=== PATIENT | female | born 1945 | race Caucasian/White ===

== ENCOUNTER 2016-09-09 21:46 | Emergency (ER) | payer MEDICARE, OTHER ==
--- NOTE | 2016-09-09 22:00 | EDM.PDOC ---
ED HPI GENERAL MEDICAL PROBLEM - General Chief Complaint: Skin Complaint Stated Complaint: BITE NECK/RASH Time Seen by Provider: 09/09/16 21:56 - History of Present Illness INITIAL COMMENTS - FREE TEXT/NARRATIVE: HISTORY AND PHYSICAL: History of present illness: Patient 70-year-old female presents with concern of insect bite to her right neck yesterday she states today she noticed increased redness and discomfort is no fever chills nausea vomiting or other complaints Review of systems: As per history of present illness and below otherwise all systems reviewed and negative. Past medical history: As per history of present illness and as reviewed below otherwise noncontributory. Surgical history: As per history of present illness and as reviewed below otherwise noncontributory. Social history: No reported history of drug or alcohol abuse. Family history: As per history of present illness and as reviewed below otherwise noncontributory. Physical exam: HEENT: Atraumatic, normocephalic, pupils reactive, negative for conjunctival pallor or scleral icterus, mucous membranes moist, throat clear, neck has a small area of erythema minimal swelling., nontender, trachea midline. Lungs: Clear to auscultation, breath sounds equal bilaterally, chest nontender. Heart: S1S2, regular, negative for clicks, rubs, or JVD. Abdomen: Soft, nondistended, nontender. Negative for masses or hepatosplenomegaly. Negative for costovertebral tenderness. Pelvis: Stable nontender. Genitourinary: Deferred. Rectal: Deferred. Extremities: Atraumatic, negative for cords or calf pain. Neurovascular unremarkable. Neuro: Awake, alert, oriented. Cranial nerves II through XII unremarkable. Cerebellum unremarkable. Motor and sensory unremarkable throughout. Exam nonfocal. Diagnostics: None Therapeutics: None Impression: #1 insect bite right neck #2 rule out early superficial cellulitis Definitive disposition and diagnosis as appropriate pending reevaluation and review of above. neck area Pain Score (Numeric/FACES): 5 ED ROS GENERAL - Review of Systems Review Of Systems: ROS reveals no pertinent complaints other than HPI. ED EXAM, SKIN/RASH Exam: See Below (See dictation) Course - Vital Signs Last Recorded V/S: Last Vital Signs Temp 36.3 C 09/09/16 21:53 Pulse 50 L 09/09/16 21:53 Resp 18 09/09/16 21:53 BP 141/65 H 09/09/16 21:53 Pulse Ox Departure - Departure Time of Disposition: 21:59 Disposition: Home, Self-Care 01 Preliminary Cause of *Q: Sepsis & Multi System Organ Failure Clinical Impression: Cellulitis - Discharge Information Forms: ED Department Discharge Additional Instructions: The following information is given to patients seen in the emergency department who are being discharged to home. This information is to outline your options for follow-up care. We provide all patients seen in our emergency department with a follow-up referral. The need for follow-up, as well as the timing and circumstances, are variable depending upon the specifics of your emergency department visit. If you don't have a primary care physician on staff, we will provide you with a referral. We always advise you to contact your personal physician following an emergency department visit to inform them of the circumstance of the visit and for follow-up with them and/or the need for any referrals to a consulting specialist. The emergency department will also refer you to a specialist when appropriate. This referral assures that you have the opportunity for followup care with a specialist. All of these measure are taken in an effort to provide you with optimal care, which includes your followup. Under all circumstances we always encourage you to contact your private physician who remains a resource for coordinating your care. When calling for followup care, please make the office aware that this follow-up is from your recent emergency room visit. If for any reason you are refused follow-up, please contact the [facility] emergency department at and asked to speak to the emergency department charge nurse. Bactrim as prescribed Motrin and Tylenol as directed Benadryl as directed follow up primary medical doctor 1-2 days return as needed as discussed
== END 2016-09-09 22:06 | disposition home or self-care (01) ==
LOC: MW.ED 21:46
CPT/HCPCS: 99281; 99283

== ENCOUNTER 2017-06-24 09:22 | Observation (INO) | payer MEDICARE, OTHER ==
[2017-06-24] MEDS ORDERED: Meclizine 25 MG Tab PO ONE (09:55)
[2017-06-24] MEDS ORDERED: Ondansetron 4 MG/2 ML SDV IVPUSH ONE (09:55)
[2017-06-24] MEDS ORDERED: Sodium Chloride 0.9% 2.5 ML Syringe FLUSH PRN (09:55)
[2017-06-24] MEDS ORDERED: Sodium Chloride 0.9% 10 ML Syringe FLUSH PRN (09:55)
[2017-06-24] MEDS ORDERED: diphenhydrAMINE 50 MG/ML SDV IVPUSH ONE (09:55)
--- NOTE | 2017-06-24 09:56 | EDM.PDOC ---
ED HPI GENERAL MEDICAL PROBLEM - General Chief Complaint: Neuro Symptoms/Deficits Stated Complaint: DIZZY Time Seen by Provider: 06/24/17 09:34 - History of Present Illness INITIAL COMMENTS - FREE TEXT/NARRATIVE: HISTORY AND PHYSICAL: History of present illness: The patient is a 71-year-old female who follows with Dr. Florence at [facility] for her medical care and presents with sudden onset of dizziness associated with nausea that started about 8:30- 9:00 this morning. The patient tells me she had a normal day yesterday without any systemic complaints and slept fine through the night. She says she usually awakens one time during the night due to a hot flash and to go to the bathroom and she did that about 2 AM and had no symptoms of dizziness or lightheadedness. She woke at 5:00 this morning got up and did her normal morning routine and was having no symptomatology. She decided she was laid back down for a nap and as she was laying in bed the dizziness suddenly started and she felt like it was a spinning -like sensation. She was afraid to sit up or move her head. It was associated with nausea but no vomiting. The patient denies any headache or ear pain no chest pain palpitations or shortness of breath no abdominal pain. She currently tells me is better when she is laying flat and better with her eyes closed with little head movement. Is no neurosensory changes in her extremities and no weakness. The patient says that they called EMS for the symptoms as she was afraid to sit up. She does not feel lightheaded she feels like she is dizzy. She has never had this before but had one episode of motion sickness when she was on a boat in [place] on a trip and is never been on a boat since. EMS gave her Zofran 4 mg prior to arrival and she says that the nausea is improved but not gone. She has never had any in her ear disturbances that she is aware of. She has had cataract surgery in the past and that is stable. Review of systems: As per history of present illness and below otherwise all systems reviewed and negative. Past medical history: As per history of present illness and as reviewed below otherwise noncontributory. Surgical history: As per history of present illness and as reviewed below otherwise noncontributory. Social history: No reported history of drug or alcohol abuse. Family history: As per history of present illness and as reviewed below otherwise noncontributory. Physical exam: General: Well-developed well-nourished female who is nontoxic and speaking clearly and is very thin but age appropriate. Vitals are noted by me. The patient prefers to lie flat and does not like to move her head very much. HEENT: Atraumatic, normocephalic, pupils reactive, the patient does have some nystagmus with gaze to the left denies any symptomatology with that movement, negative for conjunctival pallor or scleral icterus, mucous membranes moist, throat clear, neck supple, nontender, trachea midline. TMs are dulled bilaterally and there is no mastoid tenderness or redness. There is no cervical adenopathy or nuchal rigidity and no posterior neck tenderness or occipital tenderness. Lungs: Clear to auscultation, breath sounds equal bilaterally, chest nontender. Heart: S1S2, regular, negative for clicks, rubs, or JVD. Abdomen: Soft, nondistended, nontender. Negative for masses or hepatosplenomegaly. NABS Pelvis: Stable nontender. Genitourinary: Deferred. Rectal: Deferred. Extremities: Atraumatic, negative for cords or calf pain. Neurovascular unremarkable. Full range of motion without defects or deficits Neuro: Awake, alert, oriented. Cranial nerves II through XII unremarkable. Motor and sensory unremarkable throughout. Exam nonfocal. Skin: There is no diaphoresis turgor is normal and no overt rashes or lesions are appreciated Diagnostics: EKG CBC CMP troponin TSH UA urine culture if indicated orthostatic vital CT scan of the head Therapeutics: IV O2 monitor IV fluids Zofran Antivert Benadryl Orthostatic vitals show change in SBP and pulse with HR going from 54 to 70 and SBP 145-124 from supine to standing. Nursing tells me that the patient does have symptomatology of dizziness/lightheadedness with these changes. 1156: Case was discussed with Dr. Garland our hospitalist who accepts the patient for observation admission. I've also discussed all testing results with the patient and at bedside. She says she feels somewhat better but is not completely resolved and she is concerned about difficulties with movement. She is aware of my concerns and agrees with the admission. Impression: Acute episode of dizziness, persistent orthostasis etiology unclear stable Definitive disposition and diagnosis as appropriate pending reevaluation and review of above. 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: Musculoskeletal History: Reports: None Neurological History: Reports: None Psychiatric History: Reports: None Endocrine/Metabolic History: Reports: None Hematologic History: Reports: None Immunologic History: Reports: None Oncologic (Cancer) History: Reports: None Dermatologic History: Reports: None - Infectious Disease History Infectious Disease History: Reports: Chicken Pox - Past Surgical History Head Surgeries/Procedures: Reports: None HEENT Surgical History: Reports: Cataract Surgery GI Surgical History: Reports: Other (See Below) Other GI Surgeries/Procedures: Tummy Tuck Female Surgical History: Reports: Hysterectomy Social & Family History - Family History Family Medical History: Noncontributory - Tobacco Use Smoking Status *Q: Unknown Ever Smoked - Caffeine Use Caffeine Use: Reports: Coffee - Recreational Drug Use Recreational Drug Use: No ED ROS GENERAL - Review of Systems Review Of Systems: ROS reveals no pertinent complaints other than HPI. ED EXAM, GENERAL - Physical Exam Exam: See Below (see dictation) Course - Vital Signs Last Recorded V/S: Last Vital Signs Temp 35.9 C 06/24/17 09:37 Pulse 53 L 06/24/17 11:31 Resp 22 H 06/24/17 11:31 BP 152/77 H 06/24/17 11:31 Pulse Ox 100 06/24/17 11:31 Orthostatic Blood Pressure [ 124/84 Standing] Orthostatic Blood Pressure [ 145/76 Sitting] Orthostatic Blood Pressure [ 145/71 Supine] - Orders/Labs/Meds Orders: Active Orders 24 hr Category Date Time Status Cardiac Monitoring [RC] . DIRECTED Care 06/24/17 09:54 Active EKG Documentation Completion [RC] STAT Care 06/24/17 09:54 Active Orthostatic Vital Signs [RC] ASDIRECTED Care 06/24/17 09:55 Active Oxygen Therapy, ED [RC] ASDIRECTED Care 06/24/17 09:54 Active Pulse Oximetry [RC] ASDIRECTED Care 06/24/17 09:54 Active UA W/MICROSCOPIC [URIN] Stat Lab 06/24/17 11:25 Ordered Sodium Chloride 0.9% [Normal Saline] 500 ml Med 06/24/17 10:00 Active IV STAT Sodium Chloride 0.9% [Saline Flush] Med 06/24/17 09:55 Active 10 ml FLUSH ASDIRECTED PRN Sodium Chloride 0.9% [Saline Flush] Med 06/24/17 09:55 Active 2.5 ml FLUSH ASDIRECTED PRN Saline Lock Insert [OM.PC] Stat Oth 06/24/17 09:54 Ordered Medication Orders Sodium Chloride (Normal Saline) 500 mls @ 999 mls/hr IV STAT ENEDINA Last Admin: 06/24/17 10:48 Dose: 999 mls/hr Sodium Chloride (Saline Flush) 10 ml FLUSH ASDIRECTED PRN PRN Reason: Keep Vein Open Sodium Chloride (Saline Flush) 2.5 ml FLUSH ASDIRECTED PRN PRN Reason: Keep Vein Open Labs: Laboratory Tests 06/24/17 06/24/17 06/24/17 Range/Units 10:30 10:30 11:25 WBC 4.91 (4.0-11.0) K/uL RBC 4.46 (4.30-5.90) M/uL Hgb 13.9 (12.0-16.0) g/dL Hct 41.6 (36.0-46.0) % MCV 93.3 (80.0-98.0) fL MCH 31.2 (27.0-32.0) pg MCHC 33.4 (31.0-37.0) g/dL RDW Std Deviation 44.3 (28.0-62.0) fl RDW Coeff of Shaquille 13 (11.0-15.0) % Plt Count 207 (150-400) K/uL MPV 9.40 (7.40-12.00) fL Neut % (Auto) 74.6 (48.0-80.0) % Lymph % (Auto) 18.5 (16.0-40.0) % [place] % (Auto) 5.5 (0.0-15.0) % Eos % (Auto) 1.0 (0.0-7.0) % Baso % (Auto) 0.4 (0.0-1.5) % Neut # (Auto) 3.7 (1.4-5.7) K/uL Lymph # (Auto) 0.9 (0.6-2.4) K/uL [place] # (Auto) 0.3 (0.0-0.8) K/uL Eos # (Auto) 0.1 (0.0-0.7) K/uL Baso # (Auto) 0.0 (0.0-0.1) K/uL Nucleated RBC % 0.0 /100WBC Nucleated RBCs # 0 K/uL Sodium 141 (136-145) mmol/L Potassium 4.3 (3.5-5.1) mmol/L Chloride 109 H (98-107) mmol/L Carbon Dioxide 27.6 (21.0-32.0) mmol/L BUN 8 (7.0-18.0) mg/dL Creatinine 0.7 (0.6-1.0) mg/dL Est Cr Clr Drug Dosing TNP Estimated GFR (MDRD) > 60.0 ml/min Glucose 106 (74-106) mg/dL Calcium 8.9 (8.5-10.1) mg/dL Total Bilirubin 0.5 (0.2-1.0) mg/dL AST 17 (15-37) IU/L ALT 15 (14-63) IU/L Alkaline Phosphatase 47 (46-116) U/L Troponin I < 0.050 (0.000-0.056) ng/mL Total Protein 6.5 (6.4-8.2) g/dL Albumin 3.3 L (3.4-5.0) g/dL Globulin 3.2 (2.0-3.5) g/dL Albumin/Globulin Ratio 1.0 L (1.3-2.8) TSH 3rd Generation 1.10 (0.36-3.74) uIU/mL Urine Color YELLOW Urine Appearance SLT CLOUDY Urine pH 8.5 H (5.0-8.0) Ur Specific [place] 1.015 (1.001-1.035) Urine Protein NEGATIVE (NEGATIVE) mg/dL Urine Glucose (UA) NEGATIVE (NEGATIVE) mg/dL Urine Ketones TRACE H (NEGATIVE) mg/dL Urine Occult Blood NEGATIVE (NEGATIVE) Urine Nitrite NEGATIVE (NEGATIVE) Urine Bilirubin NEGATIVE (NEGATIVE) Urine Urobilinogen 0.2 (<2.0) EU/dL Ur Leukocyte Esterase NEGATIVE (NEGATIVE) Urine RBC 0-1 (0-2/HPF) Urine WBC 0-1 (0-5/HPF) Ur Epithelial Cells RARE (NONE-FEW) Amorphous Sediment MODERATE (NEGATIVE) Urine Bacteria RARE (NEGATIVE) Meds: Medications Generic Name Dose Route Start Last Admin Trade Name Freq PRN Reason Stop Dose Admin Sodium Chloride 500 mls @ 999 mls/hr 06/24/17 10:00 06/24/17 10:48 Normal Saline IV 999 mls/hr STAT ENEDINA Administration Sodium Chloride 10 ml 06/24/17 09:55 Saline Flush FLUSH ASDIRECTED PRN Keep Vein Open Sodium Chloride 2.5 ml 06/24/17 09:55 Saline Flush FLUSH ASDIRECTED PRN Keep Vein Open Discontinued Medications Generic Name Dose Route Start Last Admin Trade Name Freq PRN Reason Stop Dose Admin Diphenhydramine HCl 25 mg 06/24/17 09:55 06/24/17 10:51 Benadryl IVPUSH 06/24/17 09:56 25 mg ONETIME ONE Administration Meclizine HCl 25 mg 06/24/17 09:55 06/24/17 10:45 Antivert PO 06/24/17 09:56 25 mg ONETIME ONE Administration Ondansetron HCl 4 mg 06/24/17 09:55 06/24/17 10:46 Zofran IVPUSH 06/24/17 09:56 4 mg ONETIME ONE Administration Departure - Departure Time of Disposition: 11:59 Disposition: Refer to Observation Condition: Good Clinical Impression: Orthostasis, Dizziness - Discharge Information Referrals: Cam Florence MD [Primary Care Provider] - Forms: ED Department Discharge - My Orders Last 24 Hours: My Active Orders 06/24/17 09:54 Cardiac Monitoring [RC] . DIRECTED EKG Documentation Completion [RC] STAT Oxygen Therapy, ED [RC] ASDIRECTED Pulse Oximetry [RC] ASDIRECTED Saline Lock Insert [OM.PC] Stat 06/24/17 09:55 Orthostatic Vital Signs [RC] ASDIRECTED Sodium Chloride 0.9% [Saline Flush] 10 ml FLUSH ASDIRECTED PRN Sodium Chloride 0.9% [Saline Flush] 2.5 ml FLUSH ASDIRECTED PRN 06/24/17 10:00 Sodium Chloride 0.9% [Normal Saline] 500 ml IV STAT 06/24/17 11:25 UA W/MICROSCOPIC [URIN] Stat - Assessment/Plan Last 24 Hours: My Active Orders 06/24/17 09:54 Cardiac Monitoring [RC] . DIRECTED EKG Documentation Completion [RC] STAT Oxygen Therapy, ED [RC] ASDIRECTED Pulse Oximetry [RC] ASDIRECTED Saline Lock Insert [OM.PC] Stat 06/24/17 09:55 Orthostatic Vital Signs [RC] ASDIRECTED Sodium Chloride 0.9% [Saline Flush] 10 ml FLUSH ASDIRECTED PRN Sodium Chloride 0.9% [Saline Flush] 2.5 ml FLUSH ASDIRECTED PRN 06/24/17 10:00 Sodium Chloride 0.9% [Normal Saline] 500 ml IV STAT 06/24/17 11:25 UA W/MICROSCOPIC [URIN] Stat
[2017-06-24] MEDS ORDERED: Sodium Chloride 0.9% 500 ML IV SCH (10:00)
[2017-06-24 11:16] LABS: CHLORIDE,CL 109 mmol/L (98-107); SODIUM,NA 141 mmol/L (136-145)
--- NOTE | 2017-06-24 11:33 | CT ---
EXAMINATION: Non contrast CT head. Coronal and sagittal reformats. HISTORY: Pain FINDINGS: No evidence of intra or extra axial hemorrhage, mass, midline shift, hydrocephalus or edema. No hypoattenuation changes in the major vascular territories to suggest acute infarct. No abnormal intracranial calcifications are detected. No evidence of substantial vascular calcificat ions. Paranasal sinuses and mastoid air cells are well aerated without substantial findings. Orbits and gl obes are symmetric. Pituitary fossa appears unremarkable. Calvarium is intact. No evidence of skull fracture. IMPRESSION: No acute intracranial findings.
--- NOTE | 2017-06-24 13:05 | PCM.HP ---
H&P History of Present Illness - General Date of Service: 06/24/17 Admit Problem/Dx: Admission Diagnosis/Problem Admission Diagnosis/Problem Dizziness Source of Information: Patient History Limitations: Reports: No Limitations - History of Present Illness Initial Comments - Free Text/Narative: This 71 year old female with pmh of anxiety and glaucoma presented to the ED with complaints of sudden onset of severe dizziness this morning when she awoke. She reports she sat up from bed and instantly felt dizzy and crawled to the bathroom. She had associated nausea. She denies recent URI, fevers, neck pain or headache. No visual changes. She reports she feels like she is very unsteady and not like the room is spinning. She reports lying down helps the dizziness and the change in head position or from lying to sitting position change really worsens the dizziness. She did not try anything at home prior to arrival. She reports she has felt a little ear fullness for the last few days, but no sinus congestion or runny nose. She denies chest pain, SOB or palpitations. No abdominal pain urinary symptoms or diarrhea. She reports she started taking Zoloft 25 mg 1 week ago for some increase stress in her life and she reports not eating or drinking much due to the stress and has lost a few pounds because of this. She denies focal neurologic deficits. In the ED labwork all WNL. UA negative. Head CT negative. She was treated with Zofran, Meclizine and Benadryl in the ED along with 500 ml NS bolus. She is feeling somewhat improved after this. She was also noted to have some orthostasis with BPs supine 145/71, sitting 145/76 and standing 124/84. She will be admitted observation for dizziness. - Related Data Allergies/Adverse Reactions: Allergies Allergy/AdvReac Type Severity Reaction Status Date / Time No Known Allergies Allergy Verified 06/24/17 09:36 Home Medications: Home Meds Dorzolamide [Trusopt 2% Ophth Soln] 06/24/17 [History] Sertraline HCl 25 mg PO DAILY 06/24/17 [History] Past Medical History HEENT History: Reports: Glaucoma, Other (See Below) Other HEENT History: retina flap Cardiovascular History: Reports: None. Denies: Blood Clots/VTE/DVT, CAD, High Cholesterol, Hypertension, [place] Respiratory History: Reports: None. Denies: COPD, SOB Gastrointestinal History: Reports: None. Denies: GERD Genitourinary History: Reports: None. Denies: Acute Renal Failure, Chronic Renal Insuffiency [employer] History: Reports: Musculoskeletal History: Reports: None Neurological History: Reports: None. Denies: CVA, Migraines Psychiatric History: Reports: Anxiety Endocrine/Metabolic History: Denies: Diabetes, Type II, Hypothyroidism Hematologic History: Reports: None Immunologic History: Reports: None Oncologic (Cancer) History: Reports: None Dermatologic History: Reports: None - Infectious Disease History Infectious Disease History: Reports: Chicken Pox - Past Surgical History Head Surgeries/Procedures: Reports: None HEENT Surgical History: Reports: Cataract Surgery GI Surgical History: Reports: Other (See Below) Other GI Surgeries/Procedures: Tummy Tuck Female Surgical History: Reports: Hysterectomy Social & Family History - Family History Family Medical History: Noncontributory - Tobacco Use Smoking Status *Q: Never Smoker - Caffeine Use Caffeine Use: Reports: Coffee - Alcohol Use Alcohol Use History: No - Recreational Drug Use Recreational Drug Use: No - Living Situation & Occupation Living situation: Reports: Occupation: Retired H&P Review of Systems - Review of Systems: Review Of Systems: See Below General: Denies: Fever, Chills, Malaise HEENT: Reports: Vertigo. Denies: Ear Pain, Eye Pain, Headaches, Hearing Changes , Rhinitis, Sinus Congestion, Visual Changes Pulmonary: Reports: No Symptoms. Denies: Shortness of Breath, Cough, Sputum Cardiovascular: Reports: No Symptoms. Denies: Chest Pain, Palpitations, Edema, Syncope Gastrointestinal: Reports: Nausea (but improved since medicated. ). Denies: Abdominal Pain, Black Stool, Bloody Stool, Vomiting Genitourinary: Denies: No Symptoms, Dysuria, Frequency, Burning, Pain Musculoskeletal: Reports: No Symptoms. Denies: Neck Pain Skin: Reports: No Symptoms Psychiatric: Reports: No Symptoms. Denies: Confusion Neurological: Reports: Dizziness. Denies: Confusion, Headache, Numbness, Seizure, Syncope, Weakness, Change in Speech Hematologic/Lymphatic: Reports: No Symptoms Immunologic: Reports: No Symptoms Exam - Exam Exam: See Below - Vital Signs Vital Signs: Last Vital Signs Temp 96.7 F 06/24/17 09:37 Pulse 58 L 06/24/17 12:16 Resp 22 H 04/27/18 12:16 BP 146/69 H 06/24/17 12:16 Pulse Ox 99 06/24/17 12:16 Orthostatic Blood Pressure [ 124/84 Standing] Orthostatic Blood Pressure [ 145/76 Sitting] Orthostatic Blood Pressure [ 145/71 Supine] - Exam Quality Assessment: DVT Prophylaxis (SCDs). No: Supplemental Oxygen General: Alert, Oriented, Cooperative HEENT: PERRLA, Hearing Intact, Mucosa Moist & [place], Nares Patent, Normal Nasal Septum, Posterior Pharynx Clear, Conjunctiva Clear, EOMI, EACs Clear, TMs Clear Lungs: Clear to Auscultation, Normal Respiratory Effort Cardiovascular: Regular Rate, Regular Rhythm GI/Abdominal Exam: Normal Bowel Sounds, Soft, Non-Tender, No Organomegaly, No Distention, No Abnormal Bruit, No Mass, Pelvis Stable Extremities: Normal Inspection, Normal Range of Motion, Non-Tender, No Pedal Edema, Normal Capillary Refill Neuro Extensive - Mental Status: Alert, Oriented x3, Normal Mood/Affect, Normal Cognition Neuro Extensive - Motor, Sensory, Reflexes: CN II-XII Intact, Normal Gait Psychiatric: Alert, Normal Affect, Normal Mood - Patient Data Lab Results Last 24 hrs: Laboratory Results - last 24 hr 06/24/17 06/24/17 06/24/17 Range/Units 10:30 10:30 11:25 WBC 4.91 (4.0-11.0) K/uL RBC 4.46 (4.30-5.90) M/uL Hgb 13.9 (12.0-16.0) g/dL Hct 41.6 (36.0-46.0) % MCV 93.3 (80.0-98.0) fL MCH 31.2 (27.0-32.0) pg MCHC 33.4 (31.0-37.0) g/dL RDW Std Deviation 44.3 (28.0-62.0) fl RDW Coeff of Shaquille 13 (11.0-15.0) % Plt Count 207 (150-400) K/uL MPV 9.40 (7.40-12.00) fL Neut % (Auto) 74.6 (48.0-80.0) % Lymph % (Auto) 18.5 (16.0-40.0) % Gregory % (Auto) 5.5 (0.0-15.0) % Eos % (Auto) 1.0 (0.0-7.0) % Baso % (Auto) 0.4 (0.0-1.5) % Neut # (Auto) 3.7 (1.4-5.7) K/uL Lymph # (Auto) 0.9 (0.6-2.4) K/uL Gregory # (Auto) 0.3 (0.0-0.8) K/uL Eos # (Auto) 0.1 (0.0-0.7) K/uL Baso # (Auto) 0.0 (0.0-0.1) K/uL Nucleated RBC % 0.0 /100WBC Nucleated RBCs # 0 K/uL Sodium 141 (136-145) mmol/L Potassium 4.3 (3.5-5.1) mmol/L Chloride 109 H (98-107) mmol/L Carbon Dioxide 27.6 (21.0-32.0) mmol/L BUN 8 (7.0-18.0) mg/dL Creatinine 0.7 (0.6-1.0) mg/dL Est Cr Clr Drug Dosing TNP Estimated GFR (MDRD) > 60.0 ml/min Glucose 106 (74-106) mg/dL Calcium 8.9 (8.5-10.1) mg/dL Total Bilirubin 0.5 (0.2-1.0) mg/dL AST 17 (15-37) IU/L ALT 15 (14-63) IU/L Alkaline Phosphatase 47 (46-116) U/L Troponin I < 0.050 (0.000-0.056) ng/mL Total Protein 6.5 (6.4-8.2) g/dL Albumin 3.3 L (3.4-5.0) g/dL Globulin 3.2 (2.0-3.5) g/dL Albumin/Globulin Ratio 1.0 L (1.3-2.8) TSH 3rd Generation 1.10 (0.36-3.74) uIU/mL Urine Color YELLOW Urine Appearance SLT CLOUDY Urine pH 8.5 H (5.0-8.0) Ur Specific [place] 1.015 (1.001-1.035) Urine Protein NEGATIVE (NEGATIVE) mg/dL Urine Glucose (UA) NEGATIVE (NEGATIVE) mg/dL Urine Ketones TRACE H (NEGATIVE) mg/dL Urine Occult Blood NEGATIVE (NEGATIVE) Urine Nitrite NEGATIVE (NEGATIVE) Urine Bilirubin NEGATIVE (NEGATIVE) Urine Urobilinogen 0.2 (<2.0) EU/dL Ur Leukocyte Esterase NEGATIVE (NEGATIVE) Urine RBC 0-1 (0-2/HPF) Urine WBC 0-1 (0-5/HPF) Ur Epithelial Cells RARE (NONE-FEW) Amorphous Sediment MODERATE (NEGATIVE) Urine Bacteria RARE (NEGATIVE) Result Diagrams: 06/24/17 10:30 06/24/17 10:30 EKG INTERPRETATION EKG Date: 06/24/17 Rhythm: NSR *Q Meaningful Use (ADM) - VTE Risk Assess *Q Each Risk Factor Represents 1 Point: None Total Score 1 Point Risk Factors: 0 Each Risk Factor Represents 2 Points: Age 60 - 74 Years Total Score 2 Point Risk Factors: 2 Each Risk Factor Represents 3 Points: None Total Score 3 Point Risk Factors: 0 Each Risk Factor Represents 5 Points: None Total Score 5 Point Risk Factors: 0 Venous Thromboembolism Risk Factor Score *Q: 2 - Problem List (1) Dizziness SNOMED Code(s): 631229715, 986176680 ICD Code: R42 - DIZZINESS AND GIDDINESS Status: Acute Current Visit: Yes (2) Orthostasis SNOMED Code(s): 061810748, 574731758 ICD Code: I95.1 - ORTHOSTATIC HYPOTENSION Status: Acute Current Visit: Yes (3) Glaucoma SNOMED Code(s): 52365229 ICD Code: H40.9 - UNSPECIFIED GLAUCOMA Status: Chronic Current Visit: Yes (4) Anxiety SNOMED Code(s): 86878867 ICD Code: F41.9 - ANXIETY DISORDER, UNSPECIFIED Status: Chronic Current Visit: Yes Problem List Initiated/Reviewed/Updated: Yes Orders Last 24hrs: Active Orders 24 hr Category Date Time Status Patient Status [ADT] Stat ADT 06/24/17 12:01 Active Cardiac Monitoring [RC] . DIRECTED Care 06/24/17 09:54 Active EKG Documentation Completion [RC] STAT Care 06/24/17 09:54 Active Orthostatic Vital Signs [RC] ASDIRECTED Care 06/24/17 09:55 Active Oxygen Therapy, ED [RC] ASDIRECTED Care 06/24/17 09:54 Active Pulse Oximetry [RC] ASDIRECTED Care 06/24/17 09:54 Active UA W/MICROSCOPIC [URIN] Stat Lab 06/24/17 11:25 Ordered Sodium Chloride 0.9% [Normal Saline] 500 ml Med 06/24/17 10:00 Active IV STAT Sodium Chloride 0.9% [Saline Flush] Med 06/24/17 09:55 Active 10 ml FLUSH ASDIRECTED PRN Sodium Chloride 0.9% [Saline Flush] Med 06/24/17 09:55 Active 2.5 ml FLUSH ASDIRECTED PRN Saline Lock Insert [OM.PC] Stat Oth 06/24/17 09:54 Ordered Medication Orders Sodium Chloride (Normal Saline) 500 mls @ 999 mls/hr IV STAT [facility] Last Admin: 06/24/17 10:48 Dose: 999 mls/hr Sodium Chloride (Saline Flush) 10 ml FLUSH ASDIRECTED PRN PRN Reason: Keep Vein Open Sodium Chloride (Saline Flush) 2.5 ml FLUSH ASDIRECTED PRN PRN Reason: Keep Vein Open Assessment/Plan Comment:: This 71 year old female admitted with dizziness and orthostasis 1. Dizziness: Will have PT evaluate and treat for vestibular concerns. Continue Meclizine after PT evaluation. 2. Orthostasis: Could be related to recent initiating Zoloft last week. But may also be related to some dehydration with poor appetite and fluid intake recently. Will give IVFs and monitor orthostasis. 3. Glaucoma: Continue home eye drops. 4. Anxiety: Hold Zoloft for now. VTE prophylaxis: SCDs Dispo: 1-2 days pending improvement.
[2017-06-24] MEDS ORDERED: Ondansetron 4 MG/2 ML SDV IVPUSH PRN (13:43)
[2017-06-24] MEDS ORDERED: Acetaminophen 325 MG Tab PO PRN (13:43)
[2017-06-24] MEDS ORDERED: Meclizine 25 MG Tab PO PRN (13:43)
[2017-06-24] MEDS ORDERED: Lactated Ringers 1,000 ML IV SCH (13:45)
[2017-06-25] MEDS ORDERED: Dorzolamide 2% Ophth Soln 10 ML Bottle EYEBOTH SCH (09:00)
[2017-06-25 12:26] VITALS: BP 151/64
== END 2017-06-25 13:00 | disposition home or self-care (01) ==
LOC: MW.ED 09:22 → MW.MS 13:42
PROVIDERS: ADMIT Internal Medicine; ATTEND Internal Medicine
DX: R42 Dizziness and giddiness (principal); F41.9 Anxiety disorder, unspecified; H40.9 Unspecified glaucoma; I95.1 Orthostatic hypotension; Z79.899 Other long term (current) drug therapy
CPT/HCPCS: 36415; 70450; 80053; 81001; 84443; 84484; 85025; 93005; 95992; 96361; 96374; 96375; 97161; 99285; A9270; J1200; J2405; J7040; J7120

== ENCOUNTER 2022-05-25 06:31 | Day surgery (SDC) | payer MEDICARE, OTHER ==
[~2022-05-25 06:31] MED LIST: Lactated Ringers 1,000 ML IV SCH; Sodium Chloride 0.9% 10 ML Syringe FLUSH PRN; Sodium Chloride 0.9% 2.5 ML Syringe FLUSH PRN; Sodium Chloride 0.9% 20 ML SDV IV PRN; ceFAZolin 1 GM in Premix Bag 1 BAG IV ONE
[2022-05-25] MEDS ORDERED: Ondansetron 4 MG/2 ML SDV IVPUSH PRN (07:00)
[2022-05-25] MEDS ORDERED: fentaNYL 50 MCG/ML SDV IVPUSH PRN (07:00)
[2022-05-25] MEDS ORDERED: Metoclopramide 10 MG/2 ML SDV IVPUSH PRN (07:00)
[2022-05-25] MEDS ORDERED: Naloxone 0.4 MG/ML SDV IVPUSH PRN (07:00)
[2022-05-25] MEDS ORDERED: HYDROmorphone 1 MG/ML Syringe IVPUSH PRN (07:00)
[2022-05-25] MEDS ORDERED: Morphine 2 MG/ML SYRINGE IVPUSH PRN (07:00)
[2022-05-25] MEDS ORDERED: Albuterol 0.083% 2.5 MG/3 ML Neb Soln NEB PRN (07:00)
[2022-05-25] MEDS ORDERED: Propofol 200 MG/20 ML SDV ONE (10:03)
[2022-05-25] MEDS ORDERED: fentaNYL 100 MCG/2 ML SDV ONE (10:03)
[2022-05-25] MEDS ORDERED: Ketorolac 30 MG/ML SDV ONE (10:06)
[2022-05-25] MEDS ORDERED: Lidocaine 1% 5 ML VIAL ONE (10:06)
[2022-05-25] MEDS ORDERED: Ondansetron 4 MG/2 ML SDV ONE (10:06)
[2022-05-25] MEDS ORDERED: Rocuronium Bromide 50 MG/5 ML Syringe ONE (10:06)
[2022-05-25] MEDS ORDERED: Dexmedetomidine 200 MCG/2 ML SDV ONE (10:06)
[2022-05-25] MEDS ORDERED: Dexamethasone 4 MG/ML 5 ML MDV ONE (10:06)
[2022-05-25] MEDS ORDERED: Bupivacaine 0.25% 30 ML SDV ONE (10:07)
[2022-05-25] MEDS ORDERED: Bupivacaine 0.5% 30 ML SDV ONE (10:07)
[2022-05-25] MEDS ORDERED: ceFAZolin 2 GM Vial ONE (10:45)
[2022-05-25] MEDS ORDERED: ePHEDrine 50 MG/ML SDV ONE (10:52)
[2022-05-25] MEDS ORDERED: Phenylephrine 1% 10 MG/ML SDV ONE (10:52)
[2022-05-25] MEDS ORDERED: Sugammadex Sodium 200 MG/2 ML VIAL ONE (11:01)
[2022-05-25 13:52] VITALS: BP 134/86; PULSE 43
== END 2022-05-25 14:15 | disposition home or self-care (01) ==
LOC: MW.SDS 06:31
PROVIDERS: ATTEND Surgery
DX: K40.90 Unilateral inguinal hernia, without obstruction or gangrene, not specified as recurrent (principal); D17.79 Benign lipomatous neoplasm of other sites; K21.9 Gastro-esophageal reflux disease without esophagitis; M81.0 Age-related osteoporosis without current pathological fracture; F41.9 Anxiety disorder, unspecified; Z79.899 Other long term (current) drug therapy; Z98.890 Other specified postprocedural states
CPT/HCPCS: 49505; J0690; J1100; J1885; J2370; J2405; J2704; J3010; J3490; J7120